=== PATIENT | female | born 1945 | race Caucasian/White ===

== ENCOUNTER → 2019-11-16 | Outpatient (CLI) | payer MEDICARE, OTHER ==
[~2019-11-16] MED LIST: ALLEGRA 180MG180 MG PO; ASPIRIN 81M81 MG/TA2 PO; BROVANA15 MCG/2 M IH; CALCIUM 600MG+D1 TAB PO; COZAAR 50MG50 MG/TAB PO; CRESTOR20 MG PO; CRESTOR40 MG PO; DITROPAN 5MG TAB5 MG PO; EFFEXOR 3737.5 MG/TA PO; EFFEXOR XR37.5 MG/CA PO; GLUCOPHAGE XR750 MG PO; MULTI VITAMINS1 TAB PO; NAPROSYN500 MG PO; NEURONTIN300 MG/CAP PO; OFEV100 MG PO; OSCAL 500 TAB500 MG PO; PRIL40 PO; PROBIOTIC FORMU1 CAP PO; PROLIA60 MG/ML INJ; PROLIA60 MG/ML SQ; PROVENTIL0.09 MG/A1 IH; PULMICORT0.25 MG/2 IH; SINGULAIR 110 MG/TAB PO; SYNTHROID0.088 MG/T PO; SYNTHROID0.1 MG/TAB PO; ZANTAC 150MG T150 MG PO; ZOFRAN 4MG T4 MG/TAB PO; ZYRTEC 10MG10 MG PO
== END ==
LOC: COL.PUL 12:45
DX: J84.9 Interstitial pulmonary disease, unspecified (principal)

== ENCOUNTER → 2019-11-18 | Outpatient (CLI) | payer MEDICARE, OTHER | LOC: COL.PUL 09:51 | DX: J84.9 Interstitial pulmonary disease, unspecified (principal); J96.11 Chronic respiratory failure with hypoxia; K21.9 Gastro-esophageal reflux disease without esophagitis ==

== ENCOUNTER → 2020-01-12 | Outpatient (CLI) | payer MEDICARE, OTHER ==
--- NOTE | 2020-01-12 11:59 | NUR ---
Patient came in on her home portable concentrator running at 3LPM. At baseline resting in wating room SPO2 was 94%, Heart rate 84, respiratory rate 20. Patient began walking by 150ft SPO2 had dropped to 83%, heart rate 97, respiratory rate 28. Patient's oxygen increased to 5L patient recovered quickly SPO2 96%, Heart rate 97, Respiratory rate 24. Patient then walked an additional 200 feet. Maintained SPO2 between 91-92%, Heart rate 95-97, and SPO2 24.
== END ==
LOC: COL.PUL 11:14
DX: J84.9 Interstitial pulmonary disease, unspecified (principal); J67.9 Hypersensitivity pneumonitis due to unspecified organic dust

== ENCOUNTER → 2020-05-22 | Outpatient (CLI) | payer MEDICARE, OTHER ==
--- NOTE | 2020-05-22 14:52 | NUR ---
STARTED WITH PATIENT SITTING IN CHAIR ON BASELINE OF 5L NASAL CANNULA SPO2 93 AND HEART RATE OF 100. ONCE PATIENT WAS STANDING STILL TOLERATING OF 5L NASAL CANNULA SPO2 95 AND HEART RATE OF 100. PATIENT WALKED 300 FT AND SPO2 DROPPED TO 83% AND PATIENT NEEDED 8LNC FOR WALKING TO COME BACK UP TO 90'S. PATIENT HAD HEART RATE OF 115. ONCE PATIENT SAT DOWN THEY WERE ABLE TO COME BACK DOWN TO 5L BASELINE WITH SPO2 OF 95 AND HEART RATE OF 110.
== END ==
LOC: COL.PUL 11:01
DX: J84.9 Interstitial pulmonary disease, unspecified (principal)